=== PATIENT | male | born 1935 | race Caucasian/White ===

== ENCOUNTER 2017-10-18 11:35 | Emergency (ER) | payer MEDICARE ==
[~2017-10-18] VITALS: Ht 188 cm; Wt 122.5 kg
[~2017-10-18 11:35] MED LIST: AMLODIPINE BESY10 MG PO; ARICEPT 5 MG TAB5 MG PO; ARIPIPRAZOLE5 MG PO; B12INJ IM; BACTRIM DS TAB1 EACH PO; CYMBALTA20 MG PO; DOXYCYCLINE 10100 MG PO; DULCOLAX5 MG PO; ELIQUIS5 MG PO; FLONASE 0.05%50 MCG NASAL; FOLIC ACID1 MG PO; IRON325 PO; LANTUS SQ; LOPRESSOR100 M1 PO; LOPRESSOR50 PO; METFORMIN HCL500 MG PO; ONGLYZA5 MG PO; OYST-CAL-500500 MG PO; PRADAXA150 MG PO; PRINIVIL20 MG PO; SENOKOT-S TABL1 EACH PO; SENOKOT-S1 TA1 PO; TYLENOL325 MG PO; VITAMIN B-12500 MCG PO; VITAMIN D1000 UNI1 PO; VITAMIN D2000 UNIT PO; VITAMIN D50000 UNIT PO
[2017-10-18] MEDS ORDERED: PROAIR HFA8.5 GM INH (11:56)
[2017-10-18 12:21] LABS: INFLUENZA A ANTIGEN None Detected (None Detect); INFLUENZA B ANTIGEN None Detected (None Detect)
[2017-10-18 12:24] LABS: ABSOLUTE BASOPHILS 0.1 thou/uL (0.0-0.2); ABSOLUTE EOSINOPHILS 0.2 thou/uL (0.0-0.7); ABSOLUTE MONOCYTES 0.8 thou/uL (0.0-1.2); ABSOLUTE NEUTROPHILS 7.2 thou/uL (1.6-8.1); BASOPHILS 0.7 %; EOSINOPHILS 1.7 %; HEMATOCRIT 39.1 % (42.0-52.0); HEMOGLOBIN 12.3 gm/dL (14.0-18.0); LYMPHOCYTES 10.6 %; MCHC 31.4 g/dL (28.0-37.0); MCV 73.2 fL (80.0-100.0); MONOCYTES 8.6 %; MPV 7.8 fl. (7.2-11.1); NUCLEATED RBCS 0 /100WBC; PLATELET COUNT* 228 thou/uL (150-400); POLYS 78.4 %; RBC 5.34 mil/uL (4.50-6.00); RDW-CV 17.9 % (10.5-14.5); WBC 9.1 thou/uL (4.0-11.0)
[2017-10-18 12:32] LABS: ANION GAP 3 mmol/L (7-16); BUN 20 mg/dL (7-18); CHLORIDE 106 mmol/L (98-107); CO2 31 mmol/L (21-32); CREATININE 1.1 mg/dL (0.6-1.3); GLUCOSE 100 mg/dL (70-99); POTASSIUM 3.8 mmol/L (3.5-5.1); SODIUM 140 mmol/L (136-145)
[2017-10-18 12:39] LABS: ALKALINE PHOSPHATASE 80 U/L (46-116); LIPASE 691 U/L (73-393); SGOT 16 U/L (15-37); SGPT 15 U/L (30-65); TOTAL BILIRUBIN 0.6 mg/dL (<0.1-1.0); TOTAL PROTEIN 6.6 g/dL (6.4-8.2); TROPONIN-I LEVEL <0.06 ng/mL (<0.06)
[2017-10-18 15:34] LABS: URINE BILIRUBIN NEGATIVE (Negative); URINE BLOOD 1+ (Negative); URINE CLARITY CLOUDY; URINE COLOR YELLOW; URINE GLUCOSE-RANDOM NEGATIVE (Negative); URINE KETONES NEGATIVE (Negative); URINE NITRITE-REFLEX NEGATIVE (Negative); URINE PROTEIN 2+ (Negative); URINE SPECIFIC GRAVITY 1.015 (1.005-1.030); URINE UROBILINOGEN 0.2 E.U./dl (0.2-1.0)
[2017-10-18 15:44] LABS: BACTERIA-REFLEX >30 Many /HPF (None Seen); CASTS None Seen /LPF (None Seen); CRYSTALS None Seen /LPF (None Seen); MUCUS >6 Heavy strn/LPF (None Seen); SQUAMOUS >10 Many /LPF (0-3); URINE RBC >20 Many /HPF (0-2); URINE WBC-REFLEX >25 Many /HPF (0-5)
[2017-10-18 15:45] LABS: URINE LEUKOCYTES-REFLEX 2+ (Negative)
[2017-10-18] MEDS ORDERED: BACTRIM DS TAB1 EACH PO (15:58)
[2017-10-18 17:47] VITALS: BP 136/64
--- NOTE | 2017-10-19 06:19 | EKG ---
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1935 Requested By: Eric Orona Order Number: [id number] MD: Tong Godfrey Measurements Intervals [place] Rate: 75 P: MD: QRS: 56 QRSD: 95 T: 65 QT: 426 QTc: 476 Interpretive Statements Atrial fibrillation Borderline repolarization abnormality Borderline prolonged QT interval Compared to ECG 12/18/2016 08:24:17 No significant changes Electronically Signed On 10-19-2017 6:19:31 ROBOTICS APPLICATION ENGINEER by Tong Godfrey [email or web address] <ELECTRONICALLY SIGNED> By: Tong Godfrey MD, [facility] 10/19/17 0619 1204 1204 Tong Godfrey MD, FACC /EPI
== END 2017-10-18 17:48 | disposition home or self-care (01) ==
LOC: M.ERS 11:35
PROVIDERS: Emergency Medicine
DX: N39.0 Urinary tract infection, site not specified (principal); E11.9 Type 2 diabetes mellitus without complications; F17.210 Nicotine dependence, cigarettes, uncomplicated

== ENCOUNTER 2017-12-26 05:20 | Inpatient (IN) | payer MEDICARE ==
[~2017-12-26] VITALS: Ht 188 cm; Wt 116.1 kg
[~2017-12-26 05:20] MED LIST changes: +PROAIR HFA8.5 GM INH
[2017-12-26 05:22] VITALS: BP 139/69
[2017-12-26] MEDS ORDERED: CLARITIN10 MG PO (05:49)
[2017-12-26] MEDS ORDERED: TYLENOL325 MG PO (05:49)
[2017-12-26] MEDS ORDERED: ROBITUSSIN100 MG/53 PO (05:52)
[2017-12-26] MEDS ORDERED: ASPERCREME76.5 GM TOP (05:53)
[2017-12-26] MEDS ORDERED: ARTIFICIAL TEAR15 M1 OPHTHALMIC (05:54)
[2017-12-26 05:55] LABS: ABSOLUTE LYMPHOCYTES 0.7 thou/uL (0.8-5.3); ABSOLUTE MONOCYTES 0.6 thou/uL (0.0-1.2); ABSOLUTE NEUTROPHILS 3.9 thou/uL (1.6-8.1); BASOPHILS 0.6 %; EOSINOPHILS 0.7 %; HEMATOCRIT 34.6 % (42.0-52.0); HEMOGLOBIN 10.9 gm/dL (14.0-18.0); LYMPHOCYTES 13.8 %; MCH 23.2 pg (26.0-34.0); MCHC 31.5 g/dL (28.0-37.0); MCV 73.5 fL (80.0-100.0); MONOCYTES 10.7 %; NUCLEATED RBCS 0 /100WBC; PLATELET COUNT* 200 thou/uL (150-400); POLYS 74.2 %; RBC 4.71 mil/uL (4.50-6.00); RDW-CV 19.3 % (10.5-14.5); WBC 5.3 thou/uL (4.0-11.0)
[2017-12-26] MEDS ORDERED: DOXYCYCLINE 10100 MG PO (05:55)
[2017-12-26 05:58] LABS: BE 2.2 mmol/L (-2 to +3); HCO3 27.9 mmol/L (22.0-26.0); PCO2 47.9 mmHg (35.0-45.0); PO2 74.1 mmHg (75.0-100.0); pH 7.383 (7.340-7.450)
[2017-12-26 06:04] LABS: ANION GAP 5 mmol/L (7-16); BUN 17 mg/dL (7-18); CALCIUM 8.4 mg/dL (8.5-10.1); CHLORIDE 104 mmol/L (98-107); CO2 30 mmol/L (21-32); CREATININE 0.9 mg/dL (0.6-1.3); GLUCOSE 123 mg/dL (70-99); POTASSIUM 4.4 mmol/L (3.5-5.1); SODIUM 139 mmol/L (136-145)
[2017-12-26 06:23] LABS: ALBUMIN 2.7 g/dL (3.4-5.0); ALKALINE PHOSPHATASE 90 U/L (46-116); SGOT 29 U/L (15-37); SGPT 21 U/L (30-65); TOTAL BILIRUBIN 0.4 mg/dL (<0.1-1.0); TOTAL PROTEIN 6.2 g/dL (6.4-8.2)
[2017-12-26 06:36] LABS: NT-PRO BRAIN NAT PEPTIDE 866 pg/mL (<300); TROPONIN-I LEVEL <0.06 ng/mL (<0.06)
--- NOTE | 2017-12-26 09:51 | NUR ---
REPORT GIVEN TO FREDIS ON TELEMETRY. PT STILL EXPERIENCING SOA BUT FREE OF CHEST PAIN AT THIS TIME. FREDIS RN NOTIFIED REGARDING PT FAMILY CONCERN REGARDING NEW WOUND ON LEFT GREATER TOE. WILL TRANSFER PT TO FLOOR
[2017-12-26 09:55] VITALS: BP 141/73
[2017-12-26 10:50] VITALS: BP 145/76
--- NOTE | 2017-12-26 11:36 | NUR ---
PT ARRIVED TO THE FLOOR AT 1010. PT ORIENTED TO UNIT AND SERVICES, FOOD AND DRINK OFFERED. PT PLACED ON ENERGY ATTORNEY AND VS OBTAINED. NURSING ASSESSMENT COMPLETED AND DOCUMENTED. NURSING WILL CONTINUE TO MONITOR.
--- NOTE | 2017-12-26 13:47 | NUR ---
WOUND CARE NOTE: CONSULT RECEIVED FOR WOUND, GREAT TOE. PATIENT PRESENTS WITH A DRY, STABLE SCAB TO THE LEFT MEDIAL HALLUX. NO S/S OF INFECTION. PALPABLE PEDAL PULSE. APPLIED BETADINE. EDUCATED PATIENT'S RN TO MONITOR THE SITE FOR ANY S/S OF INFECTION. COMMUNICATED UNDERSTANDING. RECOMMEND MONITOR CLOSELY BETADINE DAILY AND PRN WILL SIGN OFF AT THIS TIME, PLEASE RECONSULT IF NEEDED
[2017-12-26 15:16] VITALS: BP 127/74
--- NOTE | 2017-12-26 16:00 | EKG ---
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1935 Requested By: Caroline Morrison Order Number: [id number] MD: Ian Dickerson Measurements Intervals [place] Rate: 95 P: IA: QRS: 72 QRSD: 95 T: 41 QT: 378 QTc: 475 Interpretive Statements Atrial fibrillation Borderline prolonged QT interval Compared to ECG 10/18/2017 12:04:00 No significant changes Electronically Signed On 12-26-2017 16:00:33 CDT by Ian Dickerson [email or web address] <ELECTRONICALLY SIGNED> By: Ian Dickerson MD, [facility] 12/26/17 1600 0527 0527 Ian Dickerson MD, [facility] /EPI
--- NOTE | 2017-12-26 16:31 | 2DMMODE ---
[place] [address] 2 D/M-MODE ECHOCARDIOGRAM Name: ROSALINO FERRARO V Room: [address] [facility]#: [id number] Admission: 12/26/17 Attend Phys: Rome Fregoso, Discharge: Date of : 31 Date of Service: 12/26/17 1631 Report #: [id number] THIS REPORT FOR: //name// APPROVED REPORT Study performed: 12/26/2017 14:32:40 EXAM: Comprehensive 2D, Doppler, and color-flow Echocardiogram Patient Location: In-Patient Room #: 229 Status: routine BSA: 2.45 HR: 61 bpm BP: 141/66 mmHg Rhythm: Atrial Fibrillation Other Information Study Quality: Good Indications Atrial Fibrillation Chest Pain 2D Dimensions LVEF(%): 66.93 (>50%) IVSd: 13.30 (7-11mm) LVOT Diam: 23.51 (18-24mm) LVDd: 54.53 mm PWd: 10.39 (7-11mm) Ascending Ao: 40.67 (22-36mm) LVDs: 34.11 (25-40mm) Aortic Root: 38.14 mm Dunn's LVEF: 66.93 % Volumes Left Atrial Volume (Systole) LA ESV Index: 33.20 mL/m2 Aortic Valve AoV Peak Avelino.: 1.67 m/s AO Peak Gr.: 11.22 mmHg LVOT Max P.22 mmHg AO Mean Gr.: 5.85 mmHg LVOT Mean P.96 mmHg LVOT Max V: 1.03 m/s AO V2 VTI: 33.98 cm LVOT Mean V: 0.64 m/s ANDREA (VTI): 2.83 cm2 LVOT V1 VTI: 22.16 [place] [address] 2 D/M-MODE ECHOCARDIOGRAM Name: ROSALINO FERRARO V Room: [address] [place] [facility]#: [id number] Admission: 12/26/17 Attend Phys: Rome Fregoso, Discharge: Date of : 31 Date of Service: 12/26/17 1631 Report #: [id number] MV Decel. Time: 201.19 ms MV PHT: 58.35 ms MVA (PHT): 3.77 cm2 TDI Medial E' Avelino.: 0.11 m/s Lateral E' Avelino.: 0.09 m/s Pulmonary Valve PV Peak Avelino.: 1.17 m/s PV Peak Gr.: 5.47 mmHg Tricuspid Valve TR Peak Gr.: 42.49 mmHg RVSP: 47.00 mmHg Left Ventricle The left ventricle is normal size. There is normal LV segmental wall motion. There is normal left ventricular wall thickness. Left ventricular systolic function is normal. The left ventricular ejection fraction is within the normal range. LVEF is 60%. This study is not technically sufficient to allow evaluation of the LV diastolic function due to atrial fibrillation. Right Ventricle The right ventricle is normal size. The right ventricular systolic function is normal. Atria The left atrium size is normal. The right atrium size is normal. Aortic Valve Mild aortic valve sclerosis. Trace aortic regurgitation. There is no aortic valvular stenosis. Mitral Valve The mitral valve is normal in structure. Mild mitral regurgitation. No evidence of mitral valve stenosis. Tricuspid Valve The tricuspid valve is normal in structure. Mild tricuspid regurgitation. The RVSP is 45-50 mmHg. Pulmonic Valve The pulmonary valve is normal in structure. There is no pulmonic [place] [address] 2 D/M-MODE ECHOCARDIOGRAM Name: ROSALINO FERRARO V Room: [address] [place] [facility]#: [id number] Admission: 12/26/17 Attend Phys: Rome Fregoso, Discharge: Date of : 31 Date of Service: 12/26/17 1631 Report #: [id number] Great Vessels The aortic root is normal in size. IVC is dilated and collapses >50% with inspiration. Pericardium There is no pericardial effusion. <Conclusion> The left ventricle is normal size. There is normal left ventricular wall thickness. Left ventricular systolic function is normal. The left ventricular ejection fraction is within the normal range. LVEF is 60%. This study is not technically sufficient to allow evaluation of the LV diastolic function due to atrial fibrillation. The right ventricle is normal size. The left atrium size is normal. Mild aortic valve sclerosis. Trace aortic regurgitation. There is no aortic valvular stenosis. The mitral valve is normal in structure. Mild mitral regurgitation. The tricuspid valve is normal in structure. Mild tricuspid regurgitation. The RVSP is 45-50 mmHg. IVC is dilated and collapses >50% with inspiration. There is no pericardial effusion. There is normal LV segmental wall motion. <ELECTRONICALLY SIGNED> By: Loyd Doan MD, FACC 12/26/17 163 30 30 Loyd Doan MD, FACC /INF
--- NOTE | 2017-12-26 18:11 | NUR ---
PT CONTINUES TO BE ALERT AND COOPERATIVE. HE CONTINUES TO TRACE A FIB ON THE MONITOR AND DENIES ANY C/O CHEST PAIN OR SOA. PT HAS A NEW 22G IV IN HIS RIGHT HAND. D/T HIS RIGHT AC IV WAS DISCONTINUED BY THE PT. HE HAS A GOOD APPETTIE AND HAS ATE 75% OR MORE OF ALL MEALS. NURSING WILL CONTINUE TO MONITOR.
[2017-12-26 20:00] VITALS: BP 144/67
[2017-12-27] VITALS: BP 141/65
[2017-12-27 04:00] VITALS: BP 105/78
--- NOTE | 2017-12-27 04:10 | NUR ---
ASSUMED PT CARE AT 1930, PT IS AWAKE AND ALERT TO SELF. PT IS ON 3L NC SATTING MIS TO LOW 90'S. PT IS COARSE AND WHZ, HAS INCREASED SICNE THE START OD SHIFT, THIS RN CALLED AND GOT IVF DC'D FROM . PT IS TRACING AFIB ON THE MONITOR, ON PT CONFUSED AND HAS BEEN PULLING AND RIPPING OUT IV'S THIS SHIFT, NEW IV'S PLACED. BED IN LOW POSITION, CALL LIGHT IN REACH, BED ALARM ON, YELLOW ARM BAND AND SOCKS IN PALCE. HOURLY ROUNDING COMPELTED FOR PT SAFETY.
[2017-12-27 05:51] LABS: HEMATOCRIT 33.8 % (42.0-52.0); HEMOGLOBIN 11.1 gm/dL (14.0-18.0); MCH 23.7 pg (26.0-34.0); MCHC 32.7 g/dL (28.0-37.0); MCV 72.6 fL (80.0-100.0); MPV 8.8 fl. (7.2-11.1); RBC 4.66 mil/uL (4.50-6.00); RDW-CV 19.1 % (10.5-14.5); WBC 5.1 thou/uL (4.0-11.0)
[2017-12-27 06:08] LABS: CALCIUM 8.8 mg/dL (8.5-10.1); CREATININE 1.1 mg/dL (0.6-1.3); MAGNESIUM 2.2 mg/dL (1.8-2.4)
[2017-12-27 06:28] LABS: POTASSIUM 4.1 mmol/L (3.5-5.1)
[2017-12-27 08:44] VITALS: BP 144/63
[2017-12-27 11:53] VITALS: BP 160/79
--- NOTE | 2017-12-27 13:28 | NUR ---
CM SPOKE TO THE PATIENT TO DISCUSS HOME SITUATION, DISCHARGE PLANNING, AND TO INFORM OF THE ROLE OF CM. PATIENT ALERT, BUT FORGETFUL. PATIENT UNABLE TO ANSWER QUESTIONS APPROPRIATELY. CM CONTACTED PATIENT'S SON AND HE INFORMS THAT THE PATIENT RESIDES AT [facility] IN [place] AND THEY CAN ANSWER QUESTIONS ABOUT PATIENT'S MOBILITY BECUASE HE WAS UNSURE. JOANNA SPOKE TO SAW ([facility], DRIVER GUIDE) AT [facility] AND SHE INFORMS THAT THE PATIENT IS NORMALLY 'ALERT AND ORIENTED, BUT ALSO HAS DAYS WHERE HE HAS SOME CONFUSION'. SHE ALSO INFORMS THAT THE PATIENT REQUIRES MIN ASSIST WITH CARES AND IS ABLE TO BATHE AND DRESS HIMSELF INDEPENDENTLY. PATIENT IS ALSO A SMOKER. PATIENT OWNS A WALKER, BUT DOES NOT USE IT OFTEN. PATIENT ALSO USES A CPAP AT NIGHT. CM WILL REMAIN AVAILABLE TO ASSIST AND FOLLOW NEEDED. [facility] [phone]
[2017-12-27 15:27] VITALS: BP 144/83
--- NOTE | 2017-12-27 18:00 | NUR ---
PT VERY CONFUSED TODAY BUT PLEASANT, ORIENTED TO PERSON AND SOMETIMES PLACE. CONTINUOUSLY ATTEMPTING TO GET OUT OF BED AND PULLING ON IV LINES. PT UP TO CHAIR FOR ABOUT AN HOUR. ATTEMPTS TO REORIENT PT. PT GIVEN WASH CLOTHS TO FOLD AND A NEWSPAPER TO LOOK AT. PT INCONTINENT OF BLADDER. MULTIPLE LINEN AND BRIEF CHANGES. BED AND CHAIR ALARMS. FALL PRECAUTIONS MAINTAINED. SPOKE WITH DAUGHTER ON PHONE WHO REPORTS THAT PT HAS PERIODS OF CONFUSION AT HOME BUT IS USUALLY ORIENTED X4.
[2017-12-27 20:00] VITALS: BP 145/69
[2017-12-28] VITALS: BP 139/72
[2017-12-28 04:00] VITALS: BP 137/67
--- NOTE | 2017-12-28 04:01 | NUR ---
ASSUMED PT CARE AT 1930, PT JULIETA WALL TOT SELF ONLY, PT IS TRACING AFIB ON THE MONITOR, ON 4L NC SATTING MID TO HIGH 90'S. PT BECAME VERY CONFUSED AND IMPULSIVE THIS SHFIT, PULLING AT IV'S AND RIPPING APART IV TUBING. PULLING OFF OXYGEN CLIMBING OUT OF BED, WAS NOTIFIED, NEW ORDERS RECEIVED, PRN MEDICATIONS GIVEN WITH GOOD RESULT. PT IS INCONTIENT THROUHGOUT THE NIGHT. BED IN LOW POSITION, CALL LIGHT IN REACH, BED ALARM ON, YELLOW ARM BAND AND SOCKS IN PALCE, HOURLY ROUDING COMPLETED FOR PT SAFETY.
[2017-12-28 05:36] LABS: HEMATOCRIT 35.3 % (42.0-52.0); HEMOGLOBIN 11.3 gm/dL (14.0-18.0); MCH 23.3 pg (26.0-34.0); MCV 72.7 fL (80.0-100.0); MPV 8.8 fl. (7.2-11.1); RBC 4.86 mil/uL (4.50-6.00); RDW-CV 19.3 % (10.5-14.5); WBC 7.9 thou/uL (4.0-11.0)
[2017-12-28 05:46] LABS: CALCIUM 8.1 mg/dL (8.5-10.1); CREATININE 1.1 mg/dL (0.6-1.3)
[2017-12-28 05:54] LABS: POTASSIUM 3.1 mmol/L (3.5-5.1)
[2017-12-28 08:00] VITALS: BP 144/75
--- NOTE | 2017-12-28 10:40 | NUR ---
CONTINUE TO FOLLOW, ALIS/DESIRE SOUTH IN ROOM. SHE CONFIRMS SHE IS PT'S DPOA. SHE WILL BE ABLE TO PROVIDE TRANSPORT HOME AND STATES ASSISTS WITH TRANSPORT FOR DR PISANO, ETC. SHE STATES PT DOES LIVE AT [facility] AND PLANS FOR HIM TO RETURN THERE. HE USES MOSTLY W/C THERE AND IS ABLE TO TRANSFER IN AND OUT OF IT. DID STATE HE'D HAD SOME CONFUSION LATELY. PT HAS FUNCTIONING CPAP AT HOME AND USES IT. DESIRE ST[facility] AND IT WAS '[facility]ALLY [place].' SHE ALSO STATED PT HAS A CARE TEAM THRU [place] [facility] THAT SOMEONE SEES HIM WEEKLY FROM. HE FOLLOWS WITH DR MARILIN SANDRA AT THE [facility]. HAS BEEN TO SNF AT THE [place] IN THE PAST ALSO. WILL FOLLOW
[2017-12-28 12:00] VITALS: BP 118/61
[2017-12-28 16:00] VITALS: BP 123/61
--- NOTE | 2017-12-28 18:15 | NUR ---
PT A&0X3 BUT FORGETFUL. PT SITTING IN CHAIR MOST OF SHIFT. INCONTINENT OF URINE AT TIMES. PT TOLERATING PO WELL. BED ALARM AND CHAIR ALARM ON. PT CALM AND COOPERATIVE. O2 SAT IN MID 90S ON RA. PT NOT ATTEMPTING TO PULL AT IV
[2017-12-28 20:00] VITALS: BP 135/65
[2017-12-29] VITALS: BP 129/58
[2017-12-29 04:00] VITALS: BP 122/55
[2017-12-29 04:38] LABS: HEMATOCRIT 35.7 % (42.0-52.0); HEMOGLOBIN 11.2 gm/dL (14.0-18.0); MCH 23.1 pg (26.0-34.0); MCHC 31.5 g/dL (28.0-37.0); MCV 73.5 fL (80.0-100.0); MPV 8.8 fl. (7.2-11.1); RBC 4.85 mil/uL (4.50-6.00); RDW-CV 19.2 % (10.5-14.5); WBC 9.7 thou/uL (4.0-11.0)
[2017-12-29 04:50] LABS: CALCIUM 8.5 mg/dL (8.5-10.1); CREATININE 1.2 mg/dL (0.6-1.3); POTASSIUM 3.7 mmol/L (3.5-5.1)
--- NOTE | 2017-12-29 06:47 | NUR ---
A&O TO PERSON AND PLACE. PT CONFUSED AT TIMES NEED REORINTAION. PT IMPULSIVE. 2L O2. X1 ASSIST. AFIB ON THE MONITOR. VITALS WNL. PT REFUSED GUANFENESIN AT 0100. VITALS WNL. SEE MAR. SEE CHARTING. FALL PRECATUIONS IN PLACE. HOURLY ROUDNING FOR SAFETY.
[2017-12-29 12:00] VITALS: BP 129/66
--- NOTE | 2017-12-29 13:18 | NUR ---
CONTINUE TO FOLLOW, CALLED AND SPOKE WITH OBED/ALECIA MCLAUGHLIN. SHE CONFIRMED THAT PT IS MOSTLY W/C BOUND, ABLE TO TRANSFER SELF. THEY WILL ACCEPT BACK [place]. WILL FOLLOW ALECIA MCLAUGHLIN [phone] FAX [phone]
--- NOTE | 2017-12-29 14:23 | NUR ---
ASSUMED PT CARE AT 0730, FULL ASSESMENT DONE CHARTED. PT A/O X2-3, FORGETFUL, PLESANT, UP TO CHAIR FOR BREAKFAST, DENIES PAIN, VSS, AFIB ON THE MONITOR BEFORE TELE STATUS STOPPED. PT USES CALL LIGHT SOMETIMES, BED/CHAIR ALARM ON. PT WALKED WITH STAFF IN [place], STEADY WITH WALKER. GOOD APITITE. WILL CONTINUE WITH PLAN OF CARE
--- NOTE | 2017-12-29 17:29 | NUR ---
PATIENT TRANSFERRED HERE FROM TELE, CAME VIA WHEELCHAIR IN STABLE CONDITION. NO COMPLAINTS OF ANY KIND, ORIENTED TO ROOM AND EDUCATION DONE. CALL LIGHT IS IN REACH, CHAIR ALARM IN PLACE. WILL CONTINUE TO MONITOR.
[2017-12-30 00:12] VITALS: BP 134/76
--- NOTE | 2017-12-30 04:57 | NUR ---
ASSESSMENT COMPLETE. PT SLEPT PART OF THE NIGHT. PT ORIENTED TO SELF ONLY. PT INCONT DURING THE NIGHT. PT IS FALL RISK BED ALARM ON. IV ABX GIVEN ORDERED, PT IS SALINE LOCKED. PT DENIES PAIN AND N/V. PT TURNS SELF IN BED DURING THE NIGHT. SEE ASSESSMENT AND VITALS FOR OTHER DETAILS. CALL LIGHT WITHIN REACH, WILL CONTINUE PLAN OF CARE
[2017-12-30 08:00] VITALS: BP 129/83
--- NOTE | 2017-12-30 14:45 | NUR ---
ASSUMED CARE THIS AM. O X 1, CONFUSED, IMPULSIVE, [place], POOR VISION, INCONT OF BOWEL/BLADDER, DENIES PAIN. IV ABT ANTIONE WELL, SWITCHED TO PO ABT FOR THIS EVENING. GLUCOSE WELL-MAINTAINED WITH MEDICATION. REPORT GIVEN TO STACY GOMEZ, PATIENT TO TRANSFER TO [facility], [facility], [place] WITH PATIENT.
--- NOTE | 2017-12-30 15:11 | NUR ---
ASSUMED CARE OF PATIENT AT 1455. PATIENT AWAKE, ALERT, AND ORIENTED TO HIMSELF. SITTING IN RECLINER AT BEDSIDE. THIS NURSE AGREES WITH ASSESSMENT DOCUMENTED BY PREVIOUS NURSE THIS SHIFT. DENIES NEEDS. CALL LIGHT WITHIN REACH. NURSING WILL CONTINUE TO MONITOR.
--- NOTE | 2017-12-30 17:12 | NUR ---
MARCI spoke with pt who thought that he would be able to dc today and pt seemed a little confused in conversation. MARCI let pt know to call nurse with any needs and SW discussed with pt nurse. MARCI called pt dtr Nicci at [phone] and discussed plan for pt to dc back to [facility] ph [phone] and fax [phone] on Tuesday with HH services. MARCI discussed arranging HH and pt dtr Nicci said that pt already has nursing care everday at [facility] that give meds, check blood sugars, bathe and feed pt as well and pt family declined HH services at this time. Pt dtr said that pt also has [place] [facility] if pt were to need any other services. Pt dtr plans to come to hospital at 1300 to assist with dc process and provide pt ride home.
--- NOTE | 2017-12-30 17:56 | NUR ---
NO CHANGE IN PATIENT STATUS. HAS ATTEMPTED TO USE URINAL AT BEDSIDE WITH THIS NURSE. WAS UNSUCCESSFUL. DECLINED DINNER DESPITE ENCOURAGEMENT FROM THIS NURSE. DENIES PAIN. DENIES NEEDS. BED ALARM ON. CALL LIGHT WITHIN REACH. NURSING WILL CONTINUE TO MONITOR.
[2017-12-30 20:00] VITALS: BP 153/83
[2017-12-30 23:45] VITALS: BP 139/80
--- NOTE | 2017-12-31 03:44 | NUR ---
PT ALERT CONFUSED. PT MADE SEVERAL ATTEMPTS TO GET OOB. BED ALARM ON. NOT ON TELEMETRY. LOOSE COUGH. O2 AT 3 LITERS NC. INCONTINENT OF URINE AND BOWEL. HS BLOOD GLUCOSE 53. JUICE AND SNACKS GIVEN. DR ECHEVERRIA NOTIFIED. HS DOSE OF INSULIN DECREASED BY 1/2 WHEN <50% MEALS EATEN. 9 UNITS LONG ACTING INSULIN GIVEN. RECHECKS AT 2130 MN AND 0345. 0345 BG 57. D50 GIVEN. WILL CONTINUE TO MONITOR.
[2017-12-31 08:00] VITALS: BP 149/86
[2017-12-31 16:53] VITALS: BP 128/69
--- NOTE | 2017-12-31 17:53 | NUR ---
PT UP IN CHAIR MOST OF SHIFT. PT PLEASANTLY CONFUSED AT TIMES. CHAIR AND BED ALARM ON ALTHOUGH PT DOES NOT TRY TO GET UP BY HIMSELF. PT INCONTINENT OF URINE. PT UP IN ROOM WITH SB ASSIST. PT TOLERATING PO WELL AND ABLE TO TAKE PILLS WITHOUT DIFFICULTY
[2017-12-31 20:00] VITALS: BP 107/53
[2017-12-31 23:49] VITALS: BP 127/69
[2018-01-01 04:26] LABS: HEMATOCRIT 37.7 % (42.0-52.0); MCH 23.3 pg (26.0-34.0); MCHC 31.8 g/dL (28.0-37.0); MCV 73.3 fL (80.0-100.0); MPV 8.9 fl. (7.2-11.1); RBC 5.14 mil/uL (4.50-6.00); RDW-CV 18.7 % (10.5-14.5); WBC 10.7 thou/uL (4.0-11.0)
[2018-01-01 05:03] LABS: ALBUMIN 2.6 g/dL (3.4-5.0); CALCIUM 8.3 mg/dL (8.5-10.1); MAGNESIUM 2.2 mg/dL (1.8-2.4); POTASSIUM 3.6 mmol/L (3.5-5.1); TOTAL BILIRUBIN 0.8 mg/dL (<0.1-1.0); TOTAL PROTEIN 5.3 g/dL (6.4-8.2)
--- NOTE | 2018-01-01 06:10 | NUR ---
ASSUMED PATIENT CARE AT 29:15 PT IS ALERT AWAKE ORIENTED TO PLACE, AND PERSON , CONFUSED. VITAL SIGNS WITHIN NORMAL LIMIT. APPAREANCE AND IS UNAPPROPRIATE, UNLEPT. PT REFUSED BATH AND OTHE TOILET CARE OFFER. ASSESSEMENT PERFOREMD. REFER TO CHART. SCAR PRESENT IN L. FOREARM DRESSIN ON. DRESSING REMOVED, SCAR AREA Cleaned with saline. AND DRESSIN REAPPY. ,MEDICATIONS WERE ADMINISTERED ORDERED. OXYGEN SATURATION IS 93 ON RA. O2 3 L NC IS PROVIDED AND PT SATURATED AT 96 % ON 3 L NC. IV LINE IS PATENT. PT SPENT A GOOD NIGHT WITH SOME REST. ACCUCHECK WAS TAKEN TACE OF WITH SOME INSULIN. INSULIN RECEHEKED IN HE MORNING,. RESULTS WERE IN NORMLE RANGE.
[2018-01-01 07:43] VITALS: BP 121/70
--- NOTE | 2018-01-01 08:37 | NUR ---
ASSUMED CARE OF PT THIS AM AROUND 714- MS STATUS MAINTAINED- UPON ASSESSMENT PT NOTED TO BE RESTING IN BED WITH EYES CLOSED, EASILY ARROUSABLE- PT A&O X2 WITH NOTED CONFUSION- INCONTINET OF BOWEL AND BLADDER- ASSIST X1 WITH TRANSFERS- LCTA, RESP EVEN AND UN-LABORED- OCCASSIONAL COUGH NOTED, SCHEDULED COUGH SYRUP GIVEN PRESCIBED- VSS, O2 SAT 97% ON 2L VIA NC- DYSPNEA NOTED ON EXERTION- ABDOMEN SOFT/ROUND/NON-TENDER, BS X4 QUADS- LAST BM REPORTED 12/31/17- IV NOTED TO RIGHT WRIST INTACT AND SL- PT CLEANED UP THIS AM AND IN BED SIDE CHAIR FOR BREAKFAST- BS MONITORED ORDERED, SSI AND SCHEDULED INSULIN INDICATED-DRESSING TO RIGHT ARM IN PLACE, NO VISIBLE DRAINGE NOTED- PT DENIES ANY C/O PAIN/DISCOMFORT AT THIS TIME- CALL LIGHT AND PERSONAL BELONGINGS WITH IN REACH- HOURLY ROUNDS IN PLACE R/T SAFETY/NEEDS- BED/DHEERAJ ALARM IN PLACE AND WORKING FOR PT SAFETY- ALL NEEDS MET AT THIS TIME-WCTM
[2018-01-01 11:52] VITALS: BP 126/60
[2018-01-01 14:29] VITALS: BP 126/60
[2018-01-01] MEDS ORDERED: PREDNISONE 10 M10 MG PO (14:44)
[2018-01-01] MEDS ORDERED: AUGMENTIN 875-1 EACH PO (14:45)
[2018-01-01] MEDS ORDERED: HUMALOG100 UNIT/1 SUBQ (15:00)
[2018-01-01] MEDS ORDERED: DUONEB 2.5-0.5 M3 ML INH (15:01)
--- NOTE | 2018-01-01 15:58 | NUR ---
ORDERS RECIEVED THIS SHIFT FOR OKAY TO D/C BACK TO ASSISTED LIVING AT THE [facility] PER - RT HERE TO DO REST EXERCISE TESTING PRIOR TO D/C WITH NO NEED NOTED PT WALKING WITH RT WITH NO DESAT NOTED- IV TO RIGHT WRIST D/C'D PRIOR TO D/C- D/C TEACHING/EDUCATION GIVEN TO PT DAUGHTER AT TIME OF D/C- ALL QUESTIONS AND CONCERNS ADDRESSED PRIOR TO D/C- WRITTEN EDUCATION ALONG WITH SCRIPTS PROVIDED TO DAUGHTER PRIOR TO D/C- BELONGINGS PACKED AND ACCOUNTED FOR PER TECH AND DAUGHTER- PT ESCORTED WITH BELONGINGS TO VEHICLE PER TECH VIA W/C AT 1600- NO PROBLEMS NOTED AT TIME OF D/C
== END 2018-01-01 16:00 | disposition home or self-care (01) | DRG 177 ==
LOC: M.ERS 05:20 → M.TBA-ER 06:34 → M.2W 06:34 → M.3W 12-29 16:49 → M.2W 12-30 14:53
PROVIDERS: Family Medicine; Internal Medicine; Personal Emergency Response Attendant; ADMIT Internal Medicine
DX: J15.6 Pneumonia due to other Gram-negative bacteria (principal); J96.01 Acute respiratory failure with hypoxia; I50.33 Acute on chronic diastolic (congestive) heart failure; E44.0 Moderate protein-calorie malnutrition; I11.0 Hypertensive heart disease with heart failure; H54.8 Legal blindness, as defined in USA; Y95 Nosocomial condition; G47.33 Obstructive sleep apnea (adult) (pediatric); D64.9 Anemia, unspecified; R91.1 Solitary pulmonary nodule; H91.90 Unspecified hearing loss, unspecified ear; F17.210 Nicotine dependence, cigarettes, uncomplicated; E11.649 Type 2 diabetes mellitus with hypoglycemia without coma; F03.90 Unspecified dementia, unspecified severity, without behavioral disturbance, psychotic disturbance, mood disturbance, and anxiety; Z68.32 Body mass index [BMI] 32.0-32.9, adult; Z79.01 Long term (current) use of anticoagulants; Z79.4 Long term (current) use of insulin; Z79.899 Other long term (current) drug therapy

== ENCOUNTER 2018-06-16 16:30 | Inpatient (IN) | payer MEDICARE ==
[~2018-06-16] VITALS: Ht 182.9 cm; Wt 120.9 kg
--- NOTE | ~2018-06-16 | OP ---
[address] [address] OPERATIVE REPORT Name: ROSALINO FERRARO V Room: [address] IN [facility]#: [id number] Admission: 06/16/18 Attend Phys: Jacquelyn Ortez Discharge: Date of : 31 Report #: [id number] THIS REPORT FOR: //name// CC: MAGNUS ADAIR Physician staff Mark Yanes PREOPERATIVE DIAGNOSIS: Right subtrochanteric femoral shaft fracture, pathologic. POSTOPERATIVE DIAGNOSIS: Right subtrochanteric femoral shaft fracture, pathologic. PROCEDURE: 1. Operative fixation of right pathologic subtrochanteric femur fracture with cephalomedullary nail. 2. Physician directed fluoroscopy greater than 1 hour. SURGEON: Rosalino Miller DO ASSISTANTS: 1. Singh Gerardo DO 2. Shadi Gillespie DO ANESTHESIA: General. ANTIBIOTICS: Weight-appropriate dosing of Ancef IV preoperatively. BLOOD LOSS: 150 mL. FLUIDS: 1500 mL of lactated Ringer's. COMPLICATIONS: None. SPECIMENS: None. DRAINS: None. CONDITION OF PATIENT: Stable to PACU. IMPLANTS: Mark gamma nail, 11 x 420 mm x 125 degree with 115 mm lag screw and 2 distal interlocking screws, 52.5 and 50 mm. 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 The x-rays looked concerning for a pathologic type lesion and I ordered a CT scan to search the chest, abdomen and pelvis. This came back with some changes in the vertebral [facility] [address] [place] [address] OPERATIVE REPORT Name: ROSALINO FERRARO Bita Room: [address] ADM IN M.R.#: [id number] Admission: 06/16/18 Attend Phys: Jacquelyn Ortez Discharge: Date of : 33 Report #: [id number] column as well as bladder area, confusing the picture as to what could be the primary, he does have a history of smoking. I went over this in detail with the family, this could be anything from metastatic disease to multiple myeloma or even a primary tumor. Family did not have any interest in aggressively pursuing a diagnosis, they wished to have nail placement in favor of biopsy and waiting. Please see previous notes for full details of the discussion we had. They gave verbal and written consent to proceed. DESCRIPTION OF PROCEDURE: I marked the right lower extremity in the presence of the operative team members and the family and everyone agreed this was correct. He was taken back to the operative suite where a briefing was performed indicating correct patient, procedure, site, antibiotics and that implants were present and sterile. All team members agreed. General anesthetic was administered. He was then transferred over to the operative table in the supine position. He was then placed into the left lateral decubitus position, well padded and secured appropriately with a beanbag. We brought in C-arm to confirm that we could get our images on the right lower extremity. We then sterilely prepped and draped the right lower extremity in standard fashion. Timeout was performed indicating correct patient, procedure, site, antibiotics and that implants were present and sterile. All team members agreed. We used C-arm to yessi out our incisions. Our first incision was proximal to the greater trochanter, scalpel through skin and careful soft tissue dissection down. We could palpate our greater trochanter. At this point in time, we placed the guidewire for starting points, confirmed that this was in the appropriate position on multiplanar C-arm imaging and then reamed over that guidewire. We inserted the ball tip guidewire. Once we got in the lateral position we were able to ream the proximal fragment paralleling the cortices. We were able to flex the leg out to that proximal fragment and control our external and internal rotation without opening the fracture site. With the guidewire in place, we then confirmed on multiplanar C-arm imaging our reduction and held this reduction while reaming. We reamed up to a 12.5 mm. At this point in time, we then made sure our ball-tipped guidewire was in the appropriate position and then checked the length. This was confirmed to be a 420 mm. Implant timeout was performed and the final nail was thrown on to the back table, the 11 x 420 mm x 125 degrees. This was assembled on the external aiming guide was inserted over the guide rizwana into the femur while the femur was held reduced. This went in quite easily. Once we had that in final position, we then made an incision for the double sleeve for lag screw placement. Careful soft tissue dissection down to bone. We then placed the lag screw for the guidewire and confirmed on multiplanar C-arm imaging that this was in appropriate position. We then measured and it measured for 115. We therefore reamed for 115 for a 120 mm screw. The screw was then engaged over the guidewire, it sat down nicely in appropriate position, had good purchase. At that point in time, we then engaged the set screw. We kept the set screw fully engaged in a static position in the subtrochanteric fracture. External aiming system was removed as well as guidewires. We saved final images in regards to the placement within the head, [place] [address] OPERATIVE REPORT Name: ROSALINO FERRARO V Room: [address] IN [facility].#: [id number] Admission: 06/16/18 Attend Phys: Jacquelyn Ortez Discharge: Date of : 33 Report #: [id number] confirmed our reduction in the subtrochanteric region on both AP and lateral planes by looking at our cortices and judging our rotation. Withholding that rotation, we then brought the C-arm distally then performed perfect cheesh-na technique for two distal interlocking screws, scalpel through skin, drilled, measured and placed the appropriate distal interlocking screws. With all hardware in place, we then saved final C-arm imaging. We had judged rotation clinically and based off of cortical read to be appropriate. Saved all images. Excellent position of the hardware, excellent fracture reduction. Irrigated with normal saline throughout the incision sites. Closure was with 0 Vicryl [id number] interrupted to reapproximate IT band and fascial layers. SubQ was closed with 2-0 Monocryl buried deep and then skin with duong. The debriefing performed where we confirmed the procedure, blood loss and all counts were correct and final. All team members agreed. Sterile dressings of Xeroform gauze, 4 x 4s, ABD and tape were applied. At that point in time, he was successfully transferred off the operative table to his gurney. Prior to waking him up we checked the rotation of the extremities with him lying naturally and the pelvis stabilized. He had the exact same amount of external rotation of the feet. We flexed his hips up to 90 degrees and checked internal and external rotation about the hip and they were equal. At this point in time, he was extubated and taken to PACU in stable condition. POSTOPERATIVE COURSE AND EVALUATION: I spoke to the multiple family members including daughter who is power of kidney puller, addressing questions that they had. They were very thankful for my time and efforts. He was resting in PACU, overall stable vital signs and appeared to be in control. Neurovascularly he was intact distally in the right lower extremity. Dressings were clean, dry and intact. All compartments were soft and compressible. He may weightbear as tolerated. He is already on Eliquis long-term and he can resume this for DVT prophylaxis. For medicine, PT, OT, dressing changes as needed, starting on postoperative day 2. They have access to my personal number and I have encouraged them to call with any type of questions or concerns. By: [id number] Miller DO /marleen
[~2018-06-16 16:30] MED LIST changes: +ARTIFICIAL TEAR15 M1 OPHTHALMIC; +ASPERCREME76.5 GM TOP; +AUGMENTIN 875-1 EACH PO; +CLARITIN10 MG PO; +DUONEB 2.5-0.5 M3 ML INH; +HUMALOG100 UNIT/1 SUBQ; +PREDNISONE 10 M10 MG PO; +ROBITUSSIN100 MG/53 PO
[2018-06-16 16:31] VITALS: BP 104/61
[2018-06-16] MEDS ORDERED: AMLODIPINE BESY10 MG PO (16:57)
[2018-06-16] MEDS ORDERED: ABILIFY 5 MG TAB5 MG PO (16:59)
[2018-06-16] MEDS ORDERED: CIPRO500 MG PO (16:59)
[2018-06-16] MEDS ORDERED: COLESTID1 GM PO (16:59)
[2018-06-16] MEDS ORDERED: ELIQUIS5 MG PO (17:00)
[2018-06-16] MEDS ORDERED: IRON325 PO (17:00)
[2018-06-16] MEDS ORDERED: ARICEPT10 M1 PO (17:00)
[2018-06-16] MEDS ORDERED: FOLIC ACID1 MG PO (17:01)
[2018-06-16] MEDS ORDERED: PRINIVIL20 MG PO (17:02)
[2018-06-16] MEDS ORDERED: LANTUS SOL100 UNIT/1 SUBQ (17:02)
[2018-06-16] MEDS ORDERED: METFORMIN HCL500 MG PO (17:02)
[2018-06-16] MEDS ORDERED: LOPRESSOR50 PO (17:03)
[2018-06-16] MEDS ORDERED: ONGLYZA5 MG PO (17:03)
[2018-06-16] MEDS ORDERED: OYST-CAL-500500 MG PO (17:04)
[2018-06-16] MEDS ORDERED: VITAMIN B-12500 MCG PO (17:05)
[2018-06-16] MEDS ORDERED: VITAMIN D1000 UNI1 PO (17:05)
[2018-06-16 17:17] LABS: ABSOLUTE BASOPHILS 0.1 thou/uL (0.0-0.2); ABSOLUTE EOSINOPHILS 0.2 thou/uL (0.0-0.7); ABSOLUTE LYMPHOCYTES 1.5 thou/uL (0.8-5.3); ABSOLUTE MONOCYTES 0.8 thou/uL (0.0-1.2); BASOPHILS 0.6 %; HEMATOCRIT 28.4 % (42.0-52.0); HEMOGLOBIN 8.7 gm/dL (14.0-18.0); MCH 20.8 pg (26.0-34.0); MCHC 30.7 g/dL (28.0-37.0); MCV 67.7 fL (80.0-100.0); MONOCYTES 9.3 %; MPV 6.7 fl. (7.2-11.1); NUCLEATED RBCS 0 /100WBC; PLATELET COUNT* 379 thou/uL (150-400); POLYS 70.1 %; RBC 4.19 mil/uL (4.50-6.00); RDW-CV 18.5 % (10.5-14.5); WBC 8.6 thou/uL (4.0-11.0)
[2018-06-16] MEDS ORDERED: NORCO 5-325 TA1 EACH PO (17:23)
[2018-06-16] MEDS ORDERED: LOPERAMIDE 2 MG2 M1 PO (17:23)
[2018-06-16] MEDS ORDERED: PROAIR HFA8.5 GM INH (17:24)
[2018-06-16] MEDS ORDERED: CLARITIN10 MG PO (17:24)
[2018-06-16] MEDS ORDERED: SENNA-DOCUSATE1 EAC1 PO (17:26)
[2018-06-16 17:27] LABS: ANION GAP 7 mmol/L (7-16); BUN 34 mg/dL (7-18); CALCIUM 8.9 mg/dL (8.5-10.1); CHLORIDE 103 mmol/L (98-107); CO2 28 mmol/L (21-32); CREATININE 1.6 mg/dL (0.6-1.3); GLUCOSE 97 mg/dL (70-99); POTASSIUM 4.3 mmol/L (3.5-5.1); SODIUM 138 mmol/L (136-145)
[2018-06-16] MEDS ORDERED: SILTUSSIN100 MG/5 M PO (17:27)
[2018-06-16] MEDS ORDERED: ASPERCREME76.5 GM TOP (17:27)
[2018-06-16 17:34] LABS: ALBUMIN 2.7 g/dL (3.4-5.0); ALKALINE PHOSPHATASE 124 U/L (46-116); SGOT 30 U/L (15-37); SGPT 18 U/L (30-65); TOTAL BILIRUBIN 0.2 mg/dL (<0.1-1.0); TOTAL PROTEIN 6.2 g/dL (6.4-8.2); TROPONIN-I LEVEL <0.06 ng/mL (<0.06)
[2018-06-16 17:46] LABS: ANISOCYTOSIS 1+; HYPOCHROMASIA 1+; MICROCYTES 2+; PLATELET ESTIMATE ADEQUATE
[2018-06-16 17:47] LABS: POIKILOCYTOSIS 2+
[2018-06-16 17:50] LABS: INR 1.1; PROTIME 11.4 Seconds (9.20-11.50)
[2018-06-16 20:11] VITALS: BP 130/59
[2018-06-16 20:30] VITALS: BP 133/63
[2018-06-17] VITALS: BP 115/61
--- NOTE | 2018-06-17 03:09 | NUR ---
PATIENT COMPLAINING OF NEEDING TO URINATE. BLADDER SCAN-480ML. DONATO PLACED WITH CLEAR YELLOW URINE. PATIENT COOPERATIVE AND CALM. BUSINESS OFFICE MANAGER FOUND PATIENT WITH DONATO PULLED OUT WITH BALLOON INFLATED WITH BLOOD. DONATO REPLACED WITHOUT DIFFICULTY. ATTEMPTED TO FLUSH BUT NO RETURN WITH 180 ML OF FLUSH. MITTENS PLACED ON PATIENT'S HANDS. DR HURST ORDERED UROLOGY CONSULT. DR. FARRELL INSTRUCTED US TO LEAVE DONATO IN.
[2018-06-17 04:00] VITALS: BP 127/61
[2018-06-17 04:06] LABS: HEMATOCRIT 26.2 % (42.0-52.0); HEMOGLOBIN 8.1 gm/dL (14.0-18.0); MCH 20.9 pg (26.0-34.0); MCHC 30.9 g/dL (28.0-37.0); MCV 67.7 fL (80.0-100.0); MPV 7.2 fl. (7.2-11.1); RBC 3.86 mil/uL (4.50-6.00); RDW-CV 18.3 % (10.5-14.5)
--- NOTE | 2018-06-17 08:04 | NUR ---
PT ADMITTED TO UNIT. PT ORIENTED TO ROOM, CALL LIGHT SHOWN, FALL AGREEMENT WENT OVER. PT ORIENTED TO SELF ONLY, UNABLE TO VERBALIZE UNDERSTANDING. ORTHO CALLED, ORDERS GIVEN FOR BUCKS TRACTION. PT PLACED IN TRACTION WITH NO COMPLICATIONS. PAIN MEDS GIVEN PER E-MAR WITH RELIEF. DONATO PLACED. SEE PREVIOUS NOTE. UROLOGY CONSULTED. PT REMAINED NPO. WILL CONTINUE WITH PLAN OF CARE.
[2018-06-17 08:15] VITALS: BP 133/68
[2018-06-17 16:00] VITALS: BP 134/52
--- NOTE | 2018-06-17 18:25 | NUR ---
PATIENT RESTING IN BED. PATIENT HAS BUCKS TRACTION TO RIGHT LEG. PATIENT HAS HAD COMPLAINTS OF PAIN TO RIGHT LEG TREATED ADEQUATELY WITH FENTANYL. PATIENT HAS SLEPT MOST OF DAY. PATIENT IS AWAKE AND ALERT AT THIS TIME. PATIENT HAS REFUSED MEALS OTHER THAN 3 BITES OF DINNER. PATIENT HAD CT AND XRAYS TODAY WITHIUT INCIDENT. PATIENT DENIES ANY NEEDS AT THIS TIME. CALL LIGHT WITHIN REACH. BED ALARM ON. WILL CONTINUE TO MONITOR.
[2018-06-17 20:00] VITALS: BP 118/45
[2018-06-18] VITALS: BP 100/48
[2018-06-18 04:00] VITALS: BP 114/57
--- NOTE | 2018-06-18 04:38 | NUR ---
ASSUMED CARE OF PT AT 1900 PT ALERT BUT CONFUSED, VS AND ASSESSMENT AT PTS BASELINE. PT CONINUES TO HAVE BUCKS TRACTION IN PLACE. RUNNING AFIB ON THE MONITOR. PT SLEPT THROUGH THE NIGHT ONLY AWAKING ONCE CONFUSED PULLING OFF TELE MONITOR AND PULLING OUT IV. REPLACED IV AND PT WENT BACK TO SLEEP. WILL CONTINUE PLAN OF CARE.
[2018-06-18 05:13] LABS: HEMATOCRIT 23.5 % (42.0-52.0); HEMOGLOBIN 7.2 gm/dL (14.0-18.0)
[2018-06-18 12:00] VITALS: BP 110/48
[2018-06-18 12:10] VITALS: BP 128/63
--- NOTE | 2018-06-18 14:55 | EKG ---
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 Electronically Signed On 06-18-2018 14:54:51 CDT by Tong Godfrey [email or web address] <ELECTRONICALLY SIGNED> By: Tong Godfrey MD, FACC 06/18/18 1454 1659 1659 Tong Godfrey MD, FACC /EPI
[2018-06-18 16:00] VITALS: BP 107/53
--- NOTE | 2018-06-18 19:02 | NUR ---
PATIENT RESTING IN BED. PATIENT HAD SURGERY THIS AM WITHOUT INCIDENT. PATIENT RETURNED TO ROOM THIS AFTERNOON. PATIENT HAS SLEPT MOST OF DAY. PATIENT DID AWAKEN FOR MEALS AND ATE WITH ASSISTANCE. PATIENT HAD COMPLAINTS OF PAIN X 1, TREATED ADEQUATELY WITH FENTANYL. PATIANT HAS O2 ON AT 6L/NC. PATIENT HAS BEEN REPOSTITIONED IN BED. FOLAY CATHETER IN PLACE, DRAINING YELLOW URINE. CALL LIGHT WITHIN REACH. WILL CONTINUE TO MONITOR.
[2018-06-19] VITALS: BP 96/51
[2018-06-19 04:32] LABS: HEMATOCRIT 23.9 % (42.0-52.0); HEMOGLOBIN 7.2 gm/dL (14.0-18.0); MCH 21.4 pg (26.0-34.0); MCHC 30.3 g/dL (28.0-37.0); MCV 70.5 fL (80.0-100.0); MPV 7.4 fl. (7.2-11.1); NUCLEATED RBCS 0 /100WBC; PLATELET COUNT* 305 thou/uL (150-400); RBC 3.39 mil/uL (4.50-6.00); RDW-CV 19.3 % (10.5-14.5); WBC 9.4 thou/uL (4.0-11.0)
[2018-06-19 04:45] LABS: INR 1.3; PROTIME 12.8 Seconds (9.20-11.50)
[2018-06-19 04:53] LABS: CALCIUM 8.8 mg/dL (8.5-10.1); CREATININE 1.5 mg/dL (0.6-1.3); POTASSIUM 5.2 mmol/L (3.5-5.1)
[2018-06-19 06:31] LABS: ABSOLUTE LYMPHOCYTES 0.4 thou/uL (0.8-5.3); ABSOLUTE MONOCYTES 0.1 thou/uL (0.0-1.2); ABSOLUTE NEUTROPHILS 8.9 thou/uL (1.6-8.1)
[2018-06-19 06:32] LABS: ANISOCYTOSIS 1+; HYPOCHROMASIA 2+; MICROCYTES 1+; PLATELET ESTIMATE ADEQUATE
--- NOTE | 2018-06-19 06:55 | NUR ---
PATIENT SLEPT WELL DURING THIS SHIFT. PT GIVEN FENTANYL AT HS FOR RT HIP PAIN. GRANDCHILDREN VISITING AT THIS TIME BUT LEFT SHORTLY AFTER PAIN MEDS GIVEN. PT REPOSITIONED Q2H PER PROTOCAL. DRESSING ON RT HIP C/D/I. SCD'S IN PLACE. PT WITH DARK YELLOW URINE IN DONATO. PT ON CAPNO WITH 6 LITERS. PT GIVEN FENTANYL AT 0400 AND RETURNED TO SLEEP. 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 PT DENIES NEEDS AT THIS TIME. FREQUENTLY USED ITEMS AND CALL LIGHT WITHIN REACH. SIDERAILS UPX4 AND BED ALARM ON. WILL CONTINUE TO MONITOR.
[2018-06-19 08:30] VITALS: BP 109/46
[2018-06-19 12:00] VITALS: BP 120/86
--- NOTE | 2018-06-19 15:54 | NUR ---
MET WITH PT BRIEFLY, CONFUSED. SPOKE WITH DTR/VESTA SOUTH OVER THE PHONE [facility] AND LEILA WITH [facility]. PT LIVES AT [facility] AND IS FOLLOWED BY [facility] FOR HIS COPD. HAD TO [facility] ADMIT. PT REQUIRED ASSIST WITH ADLS, USES W/C BUT COULD TRANSFER PER [facility] AMBULATE SOME. DTR/DESIRE STATED THAT PT WAS ON HOSPICE FOR 'EXTRA HELP' AT FACILITY AND 'NOT END OF LIFE CARE.' DID RELAY THAT INFO TO ALLI/TANYA TO DISCUSS. PT ADMITET WITH HIP FX AND IS POST OP, ANTICIPATE WILL NEED MORE CARE THAN JONO AT [facility]. DISCUSSED SNF WITH DESIRE, SHE WAS IN AGREEMENT AND WOULD LIKE PT TO GO TO [facility]. CALLED AND FAXED REFERRAL TO [facility]. BOWERS/TEDDY TO COME OUT TO VISIT WITH PT TOMORROW. CM TO FOLLOW
--- NOTE | 2018-06-19 16:26 | NUR ---
PATIENT SITTING UP IN CHAIR MOST OF SHIFT, WORKED WITH PT. UP WITH GAIT BELT AND WALKER. PRN VICODIN GIVEN FOR RIGHT HIP PAIN, PATIENT OBSERVED TO BE SLEEPING AFTER GIVEN. 24HR URINE COLLECTION IN PROCESS, BEGAN AT 1250 THIS SHIFT. DRESSING TO RIGHT HIP REMAINS DRY AND INTACT.
[2018-06-19 16:37] VITALS: BP 97/42
[2018-06-19 19:29] VITALS: BP 100/52
[2018-06-19 23:51] VITALS: BP 92/51
[2018-06-20 04:37] VITALS: BP 94/46
--- NOTE | 2018-06-20 05:49 | NUR ---
ASSESSMENT COMPLETE. PT SLEPT MOST OF THE NIGHT. AT BEGINING OF SHIFT PT REPORTED PAIN, VICODIN GIVEN WITH SOME RELIEF REPORTED. PT IS ON 2L PER NC. PT IS ON TELE MONITOR, CHRONIC AFIB. PT HAS DONATO IN PLACE. Q2 TURN. PT HAS IV FLUIDS INFUSING. DRESSING TO RIGHT LEG C/D/I. ICE PACK APPLIED MULTIPLE TIMES DURING THE NIGHT. PT IS FALL RISK, BED ALARM ON. SEE ASSESSMENT AND VITALS FOR OTHER DETAILS. CALL LIGHT WITHIN REACH, WILL CONTINUE PLAN OF CARE
[2018-06-20 07:50] VITALS: BP 113/52
[2018-06-20 12:00] VITALS: BP 97/51
[2018-06-20 15:14] VITALS: BP 97/51
[2018-06-20] MEDS ORDERED: ACCUNEB SO1.25 MG/1 INH (15:37)
[2018-06-20] MEDS ORDERED: FLOMAX0.4 MG PO (15:38)
[2018-06-20] MEDS ORDERED: FOLIC ACID1 MG PO (15:39)
[2018-06-20] MEDS ORDERED: LEVAQUIN 750 M750 MG PO (15:40)
[2018-06-20] MEDS ORDERED: NICOTINE TRANSD14 M1 TRANSDERM (15:41)
[2018-06-20] MEDS ORDERED: ONDANSETRON HCL4 M2 PO (15:43)
[2018-06-20] MEDS ORDERED: PREDNISONE 10 M10 MG PO (15:45)
[2018-06-20] MEDS ORDERED: CASODEX 50 MG T50 M1 PO (15:48)
--- NOTE | 2018-06-20 16:41 | NUR ---
MARCI was informed that [facility] would accept pt for SNF today. Around 2:30 pm, MARCI received final dc orders and med list and called and left a message with Alcira at [facility] to confirm their acceptance of pt for today and SW to arrange ambulance transportation. Alcira provided message back to MARCI at 3:30 pm stating that she was discussing with the DON at [facility] if they would be able to admit another pt today after all. Alcira called SW at 4:30 pm and stated that they were unable to accept today and would be able to accept tomorrow and could accept at 10 am. SW to arrange transport in the morning. MARCI called pt dtr Nicci and updated on dc planning. SW to continue to follow.
--- NOTE | 2018-06-20 17:31 | NUR ---
PATIENT RESTING IN BED. PATIENT IS CONFUSED BUT IS CALM AND COOPERATIVE. PATIENT HAS FAIR APPETITE. PATIENT HAD COMPLAINTS OF PAIN X 1, TREATED ADEQUATELTY WITH MEDICATION. PATIENT WORKED WITH PHYSICAL THERAPY THIS AFTERNOON BUT DID NOT AMBULATE. PATIENT IS DISCHARGED TO [facility], HOWEVER BED NOT AVAILABLE UNTIL TOMORROW 1000AM, PER CM. PATIENT DENIES ANY NEEDS AT THIS TIME. CALL LIGHT WITHIN REACH. BED ALARM ON. WILL CONTINUE TO MONITOR.
[2018-06-20 19:36] VITALS: BP 121/52
[2018-06-21 00:23] VITALS: BP 114/58
[2018-06-21 02:07] LABS: URINE PROTEIN 627 mg/24 hr (30-150)
[2018-06-21 04:00] VITALS: BP 146/70
--- NOTE | 2018-06-21 06:03 | NUR ---
ASSESSMENT COMPLETE. PT SLEPT THROUGH THE NIGHT WITHOUT ANY CONCERNS. PRN PAIN MEDICATION GIVEN TWICE NEEDED. PT IS ON 2L PER NC AT HS. PT IS AFIB ON TELE MONITOR. AFEBRILE THROUGH THE NIGHT. DRESSINGS TO RIGHT LEG C/D/I. PT Q2 TURN. DONATO IN PLACE WITH [place] OUTPUT. SEE ASSESSMENT AND VITALS FOR OTHER DETAILS. BED ALARM ON, CALL LIGHT WITHIN REACH. WILL CONTINUE PLAN OF CARE
[2018-06-21 08:04] LABS: URINE BILIRUBIN NEGATIVE (Negative); URINE BLOOD 3+ (Negative); URINE CLARITY CLEAR; URINE COLOR YELLOW; URINE GLUCOSE-RANDOM NEGATIVE (Negative); URINE KETONES NEGATIVE (Negative); URINE LEUKOCYTES-REFLEX TRACE (Negative); URINE NITRITE-REFLEX NEGATIVE (Negative); URINE PROTEIN 2+ (Negative); URINE SPECIFIC GRAVITY 1.025 (1.005-1.030); URINE UROBILINOGEN 0.2 E.U./dl (0.2-1.0)
[2018-06-21 08:17] LABS: BACTERIA-REFLEX 1-9 Few /HPF (None Seen); CASTS None Seen /LPF (None Seen); CRYSTALS None Seen /LPF (None Seen); MUCUS None Seen strn/LPF (None Seen); SQUAMOUS 0-3 Few /LPF (0-3); URINE RBC 3-10 Few /HPF (0-2); URINE WBC-REFLEX 0-5 Rare /HPF (0-5)
[2018-06-21 08:39] VITALS: BP 120/60
[2018-06-21 09:23] VITALS: BP 120/60
--- NOTE | 2018-06-21 09:37 | NUR ---
Pt to d/c today to [facility]. Spoke with life skills coordinator volunteer at facility. Faxed ambulance transfer form to [facility] and called to schedule transport at 1000. Called Nicci Stephens to inform her of d/c plans. No other needs identified.
--- NOTE | 2018-06-21 10:20 | NUR ---
PATIENT DISCHARGED TO [facility]. REPORT CALLED TO DECEMBER. COPY OF CHART AND DISCHARGE PAPERS GIVEN TO TRANSPORTER. PATIENT ASSISTED WITH GETTING DRESSED AND PACKING BELONGINGS. NO IV. PATIENT DENIES ANY FURTHER NEEDS. PATIENT TAKEN BY AMBULANCE AT THIS TIME.
[2018-06-21 15:11] LABS: KAPPA FREE LIGHT CHAINS 40.5 mg/L (3.3-19.4); LAMBDA FREE LIGHT CHAINS 18.9 mg/L (5.7-26.3)
[2018-06-23 16:13] LABS: GLOBULIN TOTAL 2.4 g/dL (2.2-3.9); M-SPIKE Not Observed g/dL (Not Observed)
--- NOTE | 2018-06-27 09:57 | CON ---
[address] [address] CONSULTATION Name: ROSALINO FERRARO V Room: [address] IN M.R.#: [id number] Admission: 06/16/18 Attend Phys: Jacquelyn Ortez Discharge: 06/21/18 Date of : 33 Report #: [id number] THIS REPORT FOR: //name// CC: MAGNUS ADAIR Physician staff Mark Yanes Orthopedic Consultation HISTORY OF PRESENT ILLNESS: This is a very pleasant 83-year-old gentleman who was admitted through the emergency room after he sustained a fall in the shower at his prison, complained of pain in the right leg region. He was presented here. X-rays appropriately taken of the right leg, revealing a fracture of the proximal femur subtrochanteric region potentially pathologic. The gentleman complains of little pain in his left knee as well. Denies any other significant pains to the other areas of his body. The patient has no family with him currently. He says that there is some family. He has been seen and treated at the [facility] in the past. Gentleman does have a past medical history of diabetes mellitus, CVMD. He does have some hearing loss, apparently legal blindness, UTI in the past, some shortness of breath at times. MEDICATIONS: The gentleman does at this point in time have multiple medications that have included following meds: Amlodipine, Abilify, ciprofloxacin, Colestid. He is on Aricept, Eliquis 5 mg b.i.d. for the a-fib history. He does have ferrous sulfate, folic acid, insulin, lisinopril, metformin, metoprolol, Onglyza, calcium supplementations, vitamin B12, loratadine, ProAir inhalers, hydrocodone, guaifenesin, loperamide. SOCIAL HISTORY: Smoking tobacco about a pack a day. ALLERGIES: He has no known drug allergies otherwise. LABORATORY DATA: The patient does have new labs taken today showing hemoglobin 8.1. On 06/16, it was 8.7. White count is 9 today. This gentleman's coagulation shows PT/INR are within normal ranges. On 06/16, the INR was 1.1. The patient on his x-rays of the right femur and the pelvis demonstrates a subtrochanteric pathologic right femur fracture. The patient has not had a left knee x-ray done. One will be ordered on him. PHYSICAL EXAMINATION: VITAL SIGNS: On the chart show that he has a temperature of 37.1, 96 pulse. He does have 127/61 as his BP, respiration is 18. GENERAL: Clinically, this gentleman is alert, oriented, and cooperative. HEENT: He is legally blind as states. He says he is hard of hearing, but he answers questions appropriately. Mucous membranes are dry. His trachea is midline. I do not detect [place] [address] CONSULTATION Name: ROSALINO FERRARO V Room: [address]#: [id number] Admission: 06/16/18 Attend Phys: Jacquelyn Ortez Discharge: 06/21/18 Date of : 33 Report #: [id number] ABDOMEN: Relatively flat. EXTREMITIES: Lower extremities are seen and compared, demonstrate soft tissue edema definitely is noted to the right proximal thigh region. Compartments are all soft, however. He does demonstrate to be in Benavidez's traction to the right leg. The patient's knee on the right side has no effusion. The left knee does have effusion. When I move that left knee, it is painful, he said at the knee level, but not the hip level. The patient currently does exhibit good motion of the feet. Neurovascularly, he is intact to the lower extremities. IMPRESSION: The patient's overall clinical impression is: 1. He has a pathologic right subtrochanteric femur fracture. 2. He has left knee pain with an effusion. 3. He has been diabetic with underlying cardiovascular disease and atrial fibrillation, on chronic Eliquis for this, discontinued yesterday. The patient does have other multiple comorbidities. PLAN: This gentleman will have to be typed and crossed for blood. Definitely, if he does have surgery, he will lose some blood. It is a long bone fracture. We would have blood available. We will check H and H in the morning for sure on him. Also we discussed putting an IM nail down that leg, getting appropriate reamings as well, to send to pathology since there is no known source of the cancer that he can tell me. Appropriate reamings can be obtained. The patient would be covered by my partner, Dr. Miller who is toll transmission worker for the weekend as well. We will run all this by Dr. Miller. He might delineate other things that he might pursue, as well as treatment options. In the meantime, we will continue the Benavidez's traction, hold his anticoagulation therapy for now, resume that once the surgery is completed. Appropriate antibiotics will be given prior to surgery as well. There is definitely the risk of this surgery and appropriate for any fracture including a pulmonary embolism, DVT. He could have even at his age with underlying comorbidities. The patient could have fractures further somewhere else in this leg. We will obtain the new x-ray of the left knee to see if there are any fractures over there as well. The patient for the risk of infection will be given antibiotics preoperatively as well. It is our pleasure seeing and taking care of the patient today. <ELECTRONICALLY SIGNED> By: Germain Benitez DO 06/27/18 0957 0818 [id number] Benitez DO /nt
--- NOTE | 2018-07-14 14:59 | PATH ---
[address] [address] PATHOLOGY RPT PROCEDURE Name: ROSALINO MICHELLE V Room: [address] IN .R.#: [id number] Admission: 06/16/18 Date of : 31 Discharge: 06/21/18 Report #: [id number] Path Case #: [id number] [facility] Accession Number: [id number] . 01 Material submitted: . RIGHT FEMORAL REAMINGS . 01 Clinical history: . Right hip, subacute trochanteric fracture . 02 Diagnosis: Right femoral reamings: - Metastatic poorly differentiated carcinoma. - See comment. (MAP:andrey; 06/21/2018) QMS/06/21/2018 . 02 Comment: Immunohistochemical stains are performed on block A1 (appropriate controls) as follows: . PSA - Positive PSAP - Positive AE1/AE3 - Focal positive CDX2 - Negative p40 - Negative Napsin A - Negative CD56 - Negative TTF-1 - Negative CK7 - Negative CK20 - Negative . . 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 These findings should be interpreted with the clinical history and radiologic findings. Clinical correlation is recommended. . This case is discussed with Dr. Miller at 1:19 p.m. on 06/20/2018. . Co-review: Dr. Lorenzo . (MAP:[facility]; 06/21/2018) . 02 Electronically signed: . Tong Schaeffer MD, Pathologist NPI- [id number] . 01 Gross description: [place] [address] PATHOLOGY RPT PROCEDURE Name: JASMINE,ROSALINO Sunshine Room: [address]#: [id number] Admission: 06/16/18 Date of : 33 Discharge: 06/21/18 Report #: [id number] Path Case #: [id number] The specimen is received in formalin, labeled "Rosalino Michelle, right femoral reamings", consist of pleitez-white fibrin material, yellow soft tissue admixed with possible bone fragments measuring 2.0 x 2.0 x 0.6 cm in aggregate. The specimen is entirely submitted in A1 after decalcification. ([facility]; 06/19/2018) [facility]/ . 02 Pathologist provided ICD-10: C79.51 . 02 CPT . 694329, 484775, G42167, I62198 Specimen Comment: Report sent to ,DR HURST / DR ADAIR Specimen Comment: A duplicate report has been generated due to demographic updates. Performed at: [address], [place], [place] [id number] MD Jarek Grace MD Phone: [phone] Performed at: 02 [facility] [address], [place], [place] [id number] MD Balwinder Sanders MD Phone: [phone]
== END 2018-06-21 10:20 | DRG 480 ==
LOC: M.ERS 16:30 → M.3W 18:22 → M.TBA-ER 18:22 → M.3W 20:30
PROVIDERS: Internal Medicine Hematology & Oncology; Orthopaedic Surgery; Physician Assistant; ADMIT Internal Medicine
PROC: 0QS604Z Reposition Right Upper Femur with Internal Fixation Device, Open Approach (ICD-10-PCS; principal; 2018-06-18)
DX: S72.21XA Displaced subtrochanteric fracture of right femur, initial encounter for closed fracture (principal); E43 Unspecified severe protein-calorie malnutrition; G93.41 Metabolic encephalopathy; N17.0 Acute kidney failure with tubular necrosis; F03.91 Unspecified dementia, unspecified severity, with behavioral disturbance; J44.1 Chronic obstructive pulmonary disease with (acute) exacerbation; Z66 Do not resuscitate; I48.91 Unspecified atrial fibrillation; N40.1 Benign prostatic hyperplasia with lower urinary tract symptoms; R33.8 Other retention of urine; Z51.5 Encounter for palliative care; F17.210 Nicotine dependence, cigarettes, uncomplicated; H54.8 Legal blindness, as defined in USA; C61 Malignant neoplasm of prostate; H91.90 Unspecified hearing loss, unspecified ear; R31.9 Hematuria, unspecified; N18.3 Chronic kidney disease, stage 3 (moderate); M25.462 Effusion, left knee; D64.9 Anemia, unspecified; E11.51 Type 2 diabetes mellitus with diabetic peripheral angiopathy without gangrene; W18.30XA Fall on same level, unspecified, initial encounter; Y93.89 Activity, other specified; Y92.121 Bathroom in nursing home as the place of occurrence of the external cause; Y99.8 Other external cause status; Z79.01 Long term (current) use of anticoagulants; Z79.4 Long term (current) use of insulin; Z79.899 Other long term (current) drug therapy; Z82.49 Family history of ischemic heart disease and other diseases of the circulatory system; Z83.3 Family history of diabetes mellitus; Z23 Encounter for immunization

== ENCOUNTER → 2018-07-04 | Outpatient (CLI) | payer MEDICARE ==
[~2018-07-04] MED LIST changes: +ABILIFY 5 MG TAB5 MG PO; +ACCUNEB SO1.25 MG/1 INH; +ARICEPT10 M1 PO; +CASODEX 50 MG T50 M1 PO; +CIPRO500 MG PO; +COLESTID1 GM PO; +FLOMAX0.4 MG PO; +LANTUS SOL100 UNIT/1 SUBQ; +LEVAQUIN 750 M750 MG PO; +LOPERAMIDE 2 MG2 M1 PO; +NICOTINE TRANSD14 M1 TRANSDERM; +NORCO 5-325 TA1 EACH PO; +ONDANSETRON HCL4 M2 PO; +SENNA-DOCUSATE1 EAC1 PO; +SILTUSSIN100 MG/5 M PO
== END ==
LOC: M.RAD 11:02
DX: S72.143A Displaced intertrochanteric fracture of unspecified femur, initial encounter for closed fracture (principal); X58.XXXA Exposure to other specified factors, initial encounter; Y93.89 Activity, other specified; Y92.89 Other specified places as the place of occurrence of the external cause; Y99.8 Other external cause status